=== PATIENT | female | born 1990 | race Caucasian/White ===

== ENCOUNTER 2017-01-05 12:28 | Day surgery (SDC) | payer MEDICAID, OTHER ==
[2017-01-02 14:41] VITALS: BMI 31.4
[2017-01-05] VITALS (12 sets, daily range): BP systolic 109–134; BP diastolic 47–73; PULSE 67–106; RESP 15–21; Ht 157.5 cm; Wt 75.2 kg
[~2017-01-05] VITALS: Ht 157.5 cm; Wt 75.2 kg
[2017-01-05 13:12] LABS: ADD SCAN DIFF NO
[2017-01-05 13:13] LABS: BASOPHILS % 0.4 % (0.0-2.0); EOSINOPHILS % 0.8 % (0.0-7.0); HEMATOCRIT 37.7 % (37.0-47.0); HEMOGLOBIN 12.3 g/dl (12.0-16.0); LYMPHOCYTES # 1.2 10^3/ul (0.8-2.9); LYMPHOCYTES % 24.2 % (15.0-51.0); MEAN CORPUSCULAR HEMOGLOBIN 28.7 pg (29.0-33.0); MEAN CORPUSCULAR HGB CONC 32.6 g/dl (32.0-37.0); MEAN CORPUSCULAR VOLUME 87.9 fl (82.0-101.0); MEAN PLATELET VOLUME 10.5 fl (7.4-10.4); MONOCYTE # 0.6 10^3/ul (0.3-0.9); MONOCYTES % 11.5 % (0.0-11.0); NEUTROPHILS % 62.9 % (39.0-77.0); PLATELET COUNT 237 10^3/UL (140-415); RED BLOOD COUNT 4.29 10^6/ul (4.20-5.40); RED CELL DISTRIBUTION WIDTH 14.7 % (11.5-14.5); WHITE BLOOD COUNT 4.8 10^3/ul (4.8-10.8)
[2017-01-05 13:24] LABS: INR 1.04; PROTIME 13.6 Sec (12.2-14.2); PT RATIO 1.1
[2017-01-05 13:27] LABS: CREATININE 0.51 mg/dl (0.44-1.00); POTASSIUM 3.7 mmol/L (3.5-5.1)
[2017-01-05] MEDS ORDERED: CEFAZOLIN 2 GM/50 ML (PMX) 50 ML IVPB ONE (15:00)
[2017-01-05] MEDS ORDERED: SOD CHLORIDE 0.9% 1,000 ML IV ONE (15:00)
[2017-01-05] MEDS ORDERED: PROPOFOL 20 ML ONE (17:25)
[2017-01-05] MEDS ORDERED: FENTAnyl 50 MCG/ML VIAL ONE (17:25)
[2017-01-05] MEDS ORDERED: LIDOCAINE 2% (SDV) 5 ML INJ ONE (17:25)
[2017-01-05] MEDS ORDERED: MIDAZOLAM 1 MG/ML 2 ML INJ ONE (17:25)
[2017-01-05] MEDS ORDERED: METOCLOPRAMIDE 10 MG INJ ONE (17:26)
[2017-01-05] MEDS ORDERED: ONDANSETRON 4 MG INJ ONE (17:26)
[2017-01-05] MEDS ORDERED: DEXAMETHASONE 4 MG/ML 1 ML INJ ONE (17:26)
[2017-01-05] MEDS ORDERED: BUPIVACAINE 0.25%/EPI (SDV) 30 ML INJ ONE (17:31)
[2017-01-05] MEDS ORDERED: CEFAZOLIN 1 GM INJ ONE (17:40)
[2017-01-05] MEDS ORDERED: PHENYLephrine (100 MCG/ML) 5ML SYG ONE (17:57)
[2017-01-05] MEDS ORDERED: KETOROLAC 30 MG INJ IV PRN (18:00)
[2017-01-05] MEDS ORDERED: IBUPROFEN 600 MG TAB PO PRN (18:00)
[2017-01-05] MEDS ORDERED: ONDANSETRON 4 MG INJ IV PRN ×2 (18:00→18:30)
[2017-01-05] MEDS ORDERED: HYDROCODONE/APAP (5/325) TAB PO PRN (18:00)
--- NOTE | 2017-01-05 18:07 | OPR ---
Date/Time of Note Date/Time of Note DATE: 01/05/17 TIME: 18:02 Operative Report Procedure Date: Jan 05, 2017 Preoperative Diagnosis Right breast mass Postoperative Diagnosis Right breast mass Operation Performed Excisional biopsy right breast mass Surgeon: ALLEY MILLER MD Anesthesia: general Anesthesiologist: JOS SINGH MD Estimated Blood Loss: minimal Specimens Right breast mass Pt Condition Post Procedure: stable Disposition: PACU Indications Patient is a 26-year-old female who presented to the office complaining of a painful right breast mass. This has been present for the past 7 years. It had been causing her increasing discomfort. The patient was scheduled for excisional biopsy for symptom relief and definitive pathological diagnosis. All risks and benefits of the procedure including, but not limited to: Wound infection, excessive bleeding, postoperative seroma/hematoma formation, mass recurrence, etc. were all excellent to the patient in full detail. She fully understood and wished to proceed with the procedure. Informed consent was obtained. Operative\Procedure Findings Findings consistent with fibroadenoma Procedure Description The patient was brought to the operating room and placed supine on the operating table. Bilateral sequential compression devices were placed on both lower extremities. A dose of broad-spectrum perioperative intravenous antibiotics was given. After the induction of smooth general anesthesia the patient's right breast was prepped and draped in standard surgical fashion. The right breast mass was preoperatively marked and confirmed with the patient in the holding area. It was located in approximately the 2:00 location of the right breast. After performance of the surgical timeout the skin overlying the mass was incised using a 15 blade scalpel. The incision was taken down through the skin and subcutaneous tissues using Bovie electrocautery. The mass was identified and dissected free of surrounding tissues. It was consistent with a fibroadenoma. It was transected at its base and passed off the field as specimen. Marking suture was used to kirsten the superior and medial aspects. Wound cavity was then inspected. Hemostasis was noted to be total. The cavity was then irrigated with warm saline and the irrigant returned clear. The wound was then closed using 4-0 Monocryl sutures in subcutaneous fashion. 0.25% Marcaine with epinephrine local anesthesia was injected around the incision site. Incision was cleaned and Dermabond was applied. Sports bra was applied. Patient was awoken from anesthesia and transported to recovery in stable condition. All counts were correct at the end of the case 2. ALLEY MILLER MD Jan 05, 2017 18:06
[2017-01-05] MEDS ORDERED: HYDROmorphONE (0.2 MG/ML) 10ML SYG IV PRN (18:30)
[2017-01-05] MEDS ORDERED: OXYCODONE/ACETAMINOPHEN (5/325) TAB PO PRN (18:30)
[2017-01-05] MEDS ORDERED: PROCHLORPERAZINE 10 MG INJ IV PRN (18:30)
[2017-01-05] MEDS ORDERED: DIPHENHYDRAMINE 50 MG INJ IV PRN (18:30)
[2017-01-05] MEDS ORDERED: MEPERIDINE 25 MG INJ IV PRN (18:30)
[2017-01-05] MEDS ORDERED: FENTAnyl 50 MCG/ML VIAL IV PRN (18:30)
== END 2017-01-05 19:30 | disposition home or self-care (01) ==
LOC: SDS 12:28
PROVIDERS: ATTEND Surgery
DX: D24.1 Benign neoplasm of right breast (principal)
CPT/HCPCS: 19120; 80048; 84703; 85025; 85610; 85730; 88307; J0690; J1100; J1885; J2250; J2370; J2405; J2765; J3010; Z7512; Z7610